=== PATIENT | male | born 1960 ===

== ENCOUNTER 2017-12-15 12:32 | Emergency (ER) | payer OTHER ==
[2017-12-15 12:32] VITALS: BMI 36.0
[2017-12-15 12:43] VITALS: BP 145/77; PULSE 102; RESP 20; TEMP 97.9; O2SAT 99
[2017-12-15] MEDS ORDERED: Naproxen 500 MG TAB PO STA (13:05)
[2017-12-15] MEDS ORDERED: Naproxen 500 MG TAB PO ONE (13:11)
--- NOTE | 2017-12-15 13:18 | ED PDOC ---
Lower Extremity Pain/Injury Time Seen by Provider: 12/15/17 12:49 Chief Complaint (Nursing): Lower Extremity Problem/Injury Chief Complaint (Provider): Knee Pain History Per: Patient History/Exam Limitations: no limitations Onset/Duration Of Symptoms: Days (2 days ago) Additional Complaint(s): 57 yo male presents to the ED complaining of right knee pain, onset of 2 days ago. Patient reports of stepping with his foot sideways when shoveling snow, which then caused a non-radiating, sharp ripping sensation along the outside of his right knee. The next day he states that it felt swollen but didn't look swollen. Patient notes that he has been wearing a knee brace and taking percocet for his back pain, but it hasn't been helping with his knee pain. Of note, patient states that he's had knee injections in the past to manage pain. Past Medical History Reviewed: Historical Data, Nursing Documentation, Vital Signs Vital Signs: Last Vital Signs Temp 97.9 F 12/15/17 12:41 Pulse 102 H 12/15/17 12:41 Resp 20 12/15/17 12:41 BP 145/77 12/15/17 12:41 Pulse Ox 99 12/15/17 12:41 - Medical History PMH: Anxiety, Arthritis, Asthma, Back Problems (herniated lumbar disc), CAD, Depression, Diabetes (type II), GERD, HTN, Hypercholesterolemia, Chronic Pain Denies: Chronic Kidney Disease - Surgical History Surgical History: Coronary Stent - Family History Family History: States: Unknown Family Hx, Diabetes, Hypertension - Social History Current smoker - smoking cessation education provided: Yes (some days) Ex-Smoker (has not smoked in the last 12 months): No Alcohol: None Drugs: Denies - Immunization History Hx Tetanus Toxoid Vaccination: No Hx Influenza Vaccination: No Hx Pneumococcal Vaccination: No - Home Medications Home Medications: Ambulatory Orders Medication Instructions Recorded GlipiZIDE [Glucotrol] 10 mg PO BID 05/25/13 Diclofenac Sodium [Voltaren Gel] 1 % TP DAILY 02/19/15 Fluticasone Propionate [Flovent 0.22 mg IH DAILY 02/19/15 Hfa] Lisinopril/Hydrochlorothiazide 1 tab PO DAILY 02/19/15 [Zestoretic 12.5 mg-10 mg] Lovastatin 40 mg PO DAILY 02/19/15 Meloxicam 15 mg PO DAILY 02/19/15 Naproxen 375 mg PO DAILY 02/19/15 Sildenafil Citrate [Viagra] 100 mg PO DAILY 02/19/15 Acetaminophen/Oxycodone Hydr 1 tab PO Q6H PRN 06/02/15 [Percocet 10/325 mg Tab] Naproxen [Naprosyn] 500 mg PO BID PRN #20 tablet 12/15/17 - Allergies Allergies/Adverse Reactions: Allergies Allergy/AdvReac Type Severity Reaction Status Date / Time No Known Allergies Allergy Verified 12/15/17 12:40 Review of Systems ROS Statement: Except As Marked, All Systems Reviewed And Found Negative Constitutional: Negative for: Fever Musculoskeletal: Positive for: Back Pain (chronic), Leg Pain (right knee pain) Physical Exam - Reviewed Nursing Documentation Reviewed: Yes Vital Signs Reviewed: Yes - Physical Exam Appears: Positive for: Well, Non-toxic, No Acute Distress Head Exam: Positive for: ATRAUMATIC Skin: Positive for: Normal Color Eye Exam: Positive for: Normal appearance ENT: Positive for: Normal ENT Inspection Respiratory: Negative for: Accessory Muscle Use, Respiratory Distress Extremity: Positive for: Normal ROM, Tenderness (over the LCL ). Negative for: Pedal Edema, Deformity, Swelling Neurologic/Psych: Positive for: Alert, Oriented. Negative for: Motor/Sensory Deficits - ECG O2 Sat by Pulse Oximetry: 99 (RA) Pulse Ox Interpretation: Normal Medical Decision Making Medical Decision Making: Time: --13:05 Impression: --Right knee pain, rule out ligament tear Plan: --Naproxen 500 mg PO --Knee 3 Views Right X-ray Reassess --14:21 Knee X-ray IMPRESSION: No evidence of acute displaced fracture nor dislocation. Findings consistent with chondrocalcinosis ; rule out CPPD. Small joint effusion. Above questionable calcified Gresham cyst. Consider follow-up MRI further evaluation is required results: Scribe Attestation: Documented by Florentin Estrada acting as a scribe for Elizabeth Ulloa MD. Disposition - Clinical Impression Clinical Impression: Knee pain - Patient ED Disposition Is Patient to be Admitted: No - Disposition Referrals: Mejia Obrien MD [Medical Doctor] - Disposition: Routine/Home Disposition Time: 14:34 Condition: GOOD Prescriptions: Naproxen [Naprosyn] 500 mg PO BID PRN #20 tablet PRN Reason: Pain Instructions: Knee Pain (DC) Forms: [employer] (Pashto)
--- NOTE | 2017-12-15 14:22 | RAD ---
PROCEDURE: Right Knee Radiographs. HISTORY: right knee pain COMPARISON: None. FINDINGS: BONES: No evidence of acute displaced fracture nor dislocation. JOINTS: Intradiscal calcifications meniscal calcifications are present consistent with chondrocalcinosis. Rule out CPPD. Joint spaces are relatively preserved. JOINT EFFUSION: There is a small suprapatellar joint effusion. Circumferential of appearing calcifications within the popliteal fossa could represent calcified Gresham's cyst. Clinical correlation recommended. Vascular calcifications are also present. OTHER FINDINGS: None. IMPRESSION: No evidence of acute displaced fracture nor dislocation. Findings consistent with chondrocalcinosis ; rule out CPPD. Small joint effusion. Above questionable calcified Gresham cyst. Consider follow-up MRI further evaluation is required
== END 2017-12-15 14:43 | disposition home or self-care (01) ==
LOC: H.ER 12:32
DX: M25.561 Pain in right knee (principal); E11.9 Type 2 diabetes mellitus without complications; Z79.84 Long term (current) use of oral hypoglycemic drugs; Z95.5 Presence of coronary angioplasty implant and graft; G89.29 Other chronic pain

== ENCOUNTER 2019-01-17 02:50 | Emergency (ER) | payer OTHER ==
[2019-01-17 02:50] VITALS: BMI 31.2
[2019-01-17 03:06] VITALS: BP 183/79; PULSE 93; RESP 18; TEMP 98.3; O2SAT 99
[2019-01-17] MEDS ORDERED: Morphine 4 MG/ML VIAL ONE (04:21)
== END 2019-01-17 03:25 | disposition left against medical advice (07) ==
LOC: H.ER 02:50
DX: Z02.89 Encounter for other administrative examinations (principal)

== ENCOUNTER 2019-01-17 03:33 | Emergency (ER) | payer OTHER ==
[2019-01-17 03:52] VITALS: BMI 31.7
[2019-01-17] MEDS ORDERED: Morphine 4 MG/ML VIAL IM STA (04:19)
--- NOTE | 2019-01-17 04:49 | ED PDOC ---
HPI: Back Time Seen by Provider: 01/17/19 04:09 Chief Complaint (Nursing): Back Pain Chief Complaint (Provider): Back Pain History Per: Patient History/Exam Limitations: no limitations Onset/Duration Of Symptoms: Hrs (x 9) Current Symptoms Are (Timing): Still Present Quality Of Discomfort: "Pain" Previous Symptoms: Chronic Pain Associated Symptoms: None Additional Complaint(s): 58 year old male with a history of diabetes, HTN, high cholesterol, spinal stenosis and chronic back pain presents to the ED for evaluation of worsening spinal stenosis pain since 7 pm last night. Patient reports pain is localized to his right gluteal region and worse than normal, prompting ED visit. He states that he is supposed to receive trigger point injections from his pain management doctors, but has not been able to go. Patient took 10 mg Perocet with no relief. Denies difficulty with bowel or urinary habits, heavy lifting and recent injury. PMD: Aparna Velazquez - Risk Factors AAA Risk Factors: Pos: Older Than 49 Years Of Age, Hypertension Past Medical History Reviewed: Historical Data, Nursing Documentation, Vital Signs Vital Signs: Last Vital Signs Temp 98.6 F 01/17/19 03:52 Pulse 108 H 01/17/19 03:52 Resp 18 01/17/19 03:52 BP 159/72 H 01/17/19 03:52 Pulse Ox 98 01/17/19 03:52 - Medical History PMH: Anemia (Pt. claims he was told he has anemia), Anxiety, Arthritis, Asthma, Back Problems (herniated lumbar disc), CAD, COPD, Depression, Diabetes (type II), GERD, HTN, Hypercholesterolemia, Chronic Pain Denies: Chronic Kidney Disease - Surgical History Surgical History: Coronary Stent - Family History Family History: States: Unknown Family Hx, Diabetes, Hypertension - Immunization History Hx Tetanus Toxoid Vaccination: No Hx Influenza Vaccination: No Hx Pneumococcal Vaccination: No - Home Medications Home Medications: Ambulatory Orders Medication Instructions Recorded Baclofen [Lioresal] 1 tab PO PCHS 05/25/18 Clopidogrel [Plavix] 1 tab PO DAILY 05/25/18 Empagliflozin [Jardiance] 1 tab PO DAILY 05/25/18 Gabapentin [Neurontin] 1 cap PO BID 05/25/18 Glimepiride [Amaryl] 1 tab PO DAILY 05/25/18 MetFORMIN [glucoPHAGE] 1 tab PO BID 05/25/18 Oxycodone HCl/Acetaminophen 1 tab PO Q6H PRN 05/25/18 [Endocet 10-325 mg Tablet] Umeclidinium Brm/Vilanterol Tr 1 each INH BID 05/25/18 [Anoro Ellipta 62.5-25 Mcg INH] hydroCHLOROthiazide [Microzide] 1 cap PO DAILY 05/25/18 - Allergies Allergies/Adverse Reactions: Allergies Allergy/AdvReac Type Severity Reaction Status Date / Time No Known Allergies Allergy Verified 01/17/19 03:52 Review of Systems ROS Statement: Except As Marked, All Systems Reviewed And Found Negative Gastrointestinal: Negative for: Constipation, Melena, Hematochezia, Hematemesis Genitourinary Male: Negative for: Dysuria, Frequency, Incontinence, Hematuria Musculoskeletal: Positive for: Leg Pain (right gluteal region) Physical Exam - Reviewed Nursing Documentation Reviewed: Yes Vital Signs Reviewed: Yes - Physical Exam Appears: Positive for: Uncomfortable (visibly) Head Exam: Positive for: ATRAUMATIC, NORMAL INSPECTION, NORMOCEPHALIC Skin: Positive for: Normal Color, Warm, Dry Eye Exam: Positive for: Normal appearance, EOMI, PERRL Neck: Positive for: Normal, Painless ROM, Supple Cardiovascular/Chest: Positive for: Regular Rate, Rhythm. Negative for: Murmur Respiratory: Positive for: Normal Breath Sounds. Negative for: Respiratory Distress Gastrointestinal/Abdominal: Positive for: Normal Exam, Soft. Negative for: Tenderness Back: Positive for: Normal Inspection, Other (tenderness to palpation of right gluteal buttock without swelling or erythema) Extremity: Positive for: Other ((+) straight leg test). Negative for: Deformity Neurological/Psych: Positive for: Awake, Alert, Normal Tone, Symmetric/Intact Strength (5/5 bilaterally), Oriented (x 3). Negative for: Motor/Sensory Deficits - ECG O2 Sat by Pulse Oximetry: 98 (RA) Pulse Ox Interpretation: Normal Medical Decision Making Medical Decision Makin:19 A&P: Acute on chronic worsening of spinal stenosis and sciatica pain Not concerned for spinal cord impingement syndrome Will treat symptomatically and re-evaluate Orders: --Flexeril 10 mg PO --Morphine 4 mg IV --Toradol 60 mg IM 05:26 Patient reports complete resolution of symptoms and is stable for discharge. Advised him to seek furhter care with his pain management doctor today - Scribe Attestation: Documented by Sherlyn Leigh, acting as a scribe for Gaston Worthington MD Provider Scribe Attestation: All medical record entries made by the Scribe were at my direction and personally dictated by me. I have reviewed the chart and agree that the record accurately reflects my personal performance of the history, physical exam, medical decision making, and the department course for this patient. I have also personally directed, reviewed, and agree with the discharge instructions and disposition. Disposition - Clinical Impression Clinical Impression: Chronic back pain - Patient ED Disposition Is Patient to be Admitted: No - Disposition Referrals: Aparna Velazquez MD [Primary Care Provider] - Disposition: Routine/Home Disposition Time: 05:26 Condition: IMPROVED Instructions: Low Back Pain in Adults, Chronic Pain (DC) Forms: [employer] (Hebrew)
[2019-01-17 06:18] VITALS: BP 151/81; PULSE 87; RESP 17; TEMP 98.1
[2019-01-17 06:38] VITALS: O2SAT 98
== END 2019-01-17 05:40 | disposition home or self-care (01) ==
LOC: H.ER 03:33
DX: M54.9 Dorsalgia, unspecified (principal); E11.9 Type 2 diabetes mellitus without complications; Z79.84 Long term (current) use of oral hypoglycemic drugs
CPT/HCPCS: 96372; 99284; J1885; J2270

== ENCOUNTER 2019-01-17 14:28 | Emergency (ER) | payer OTHER ==
[2019-01-17 14:40] VITALS: BMI 48.4
--- NOTE | 2019-01-17 15:25 | ED PDOC ---
HPI: Back Time Seen by Provider: 01/17/19 15:10 Chief Complaint (Nursing): Lower Extremity Problem/Injury Chief Complaint (Provider): Back Pain History Per: Patient History/Exam Limitations: no limitations Onset/Duration Of Symptoms: Other (chronic) Current Symptoms Are (Timing): Still Present Additional Complaint(s): 58 year old male with a history of diabetes, HTN, high cholesterol, spinal stenosis and chronic back pain presents to the ED via EMS stretcher for evaluation of worsening spinal stenosis pain since being discharged from the hospital this morning. He states he went home and fell asleep, but upon waking up had the same worsening pain. Patient reports pain is localized to his right gluteal region and worse than normal, prompting ED visit. He states that he is supposed to receive trigger point injections from his pain management doctors, but this appointment is not until 01/22. Patient did not take any medications after the last doses he had in the hospital this morning around 0500, however notes he usually takes Percocets at home. Denies difficulty with bowel or urinary habits, heavy lifting and recent injury. Of note, patient is ambulating slowly with a cane. PMD: Aparna Velazquez Past Medical History Reviewed: Historical Data, Nursing Documentation, Vital Signs Vital Signs: Last Vital Signs Temp 97 F L 01/17/19 14:48 Pulse 92 H 01/17/19 14:48 Resp 16 01/17/19 14:48 BP 178/80 H 01/17/19 14:48 Pulse Ox 98 01/17/19 14:48 - Medical History PMH: Anemia (Pt. claims he was told he has anemia), Anxiety, Arthritis, Asthma, Back Problems (herniated lumbar disc), CAD, COPD, Depression, Diabetes (type II), GERD, HTN, Hypercholesterolemia, Chronic Pain Denies: Chronic Kidney Disease - Surgical History Surgical History: Coronary Stent - Family History Family History: States: Diabetes, Hypertension - Social History Drugs: Opiates (percocets) - Immunization History Hx Tetanus Toxoid Vaccination: No Hx Influenza Vaccination: No Hx Pneumococcal Vaccination: No - Home Medications Home Medications: Ambulatory Orders Medication Instructions Recorded Baclofen [Lioresal] 1 tab PO PCHS 05/25/18 Clopidogrel [Plavix] 1 tab PO DAILY 05/25/18 Empagliflozin [Jardiance] 1 tab PO DAILY 05/25/18 Gabapentin [Neurontin] 1 cap PO BID 05/25/18 Glimepiride [Amaryl] 1 tab PO DAILY 05/25/18 MetFORMIN [glucoPHAGE] 1 tab PO BID 05/25/18 Oxycodone HCl/Acetaminophen 1 tab PO Q6H PRN 05/25/18 [Endocet 10-325 mg Tablet] Umeclidinium Brm/Vilanterol Tr 1 each INH BID 05/25/18 [Anoro Ellipta 62.5-25 Mcg INH] hydroCHLOROthiazide [Microzide] 1 cap PO DAILY 05/25/18 Cyclobenzaprine [Cyclobenzaprine 10 mg PO Q8H PRN #20 tab 01/17/19 HCl] Ibuprofen [Motrin Tab] 800 mg PO Q8H PRN #30 tab 01/17/19 - Allergies Allergies/Adverse Reactions: Allergies Allergy/AdvReac Type Severity Reaction Status Date / Time No Known Allergies Allergy Verified 01/17/19 03:52 Review of Systems ROS Statement: Except As Marked, All Systems Reviewed And Found Negative Genitourinary Male: Negative for: Dysuria, Frequency, Incontinence Musculoskeletal: Positive for: Back Pain (chronic) Physical Exam - Reviewed Nursing Documentation Reviewed: Yes Vital Signs Reviewed: Yes - Physical Exam Appears: Positive for: No Acute Distress Head Exam: Positive for: ATRAUMATIC, NORMOCEPHALIC Skin: Positive for: Normal Color, Warm. Negative for: Rash Eye Exam: Positive for: Normal appearance Neck: Positive for: Normal, Painless ROM, Supple Cardiovascular/Chest: Positive for: Regular Rate, Rhythm Respiratory: Positive for: Normal Breath Sounds. Negative for: Respiratory Distress Pulses-Dorsalis Pedis (L): 2+ Pulses-Dorsalis Pedis (R): 2+ Gastrointestinal/Abdominal: Positive for: Normal Exam, Soft. Negative for: Tenderness Back: Positive for: Normal Inspection (no ecchymosis, erythema, or break in skin integrity), Other (point tenderness to right lower back radiating down right glute) Extremity: Positive for: Capillary Refill (less than 2 seconds) Neurological/Psych: Positive for: Awake, Alert, Oriented (x3), Gait (slow, assisted with cane) - ECG O2 Sat by Pulse Oximetry: 98 (RA) Pulse Ox Interpretation: Normal Medical Decision Making Medical Decision Making: Time: 1513 Initial Impression: chronic back pain Initial Plan: --Flexeril 10mg PO --Toradol 60mg IM --Reevaluation 16:06 Patient reevaluated. He is walking with his cane back forth from the nurses' station to his chair. He reports that he feels better leaning forward. Pain has improved slightly, but not much. Morphine 4 mg IM to be given. Reevaluate 17:12 Patient was given prescription for Flexeril, and motrin. Patient is ambulating with less difficulty. Follow up with PMD to get epidural shots. Return parame therons discussed. Scribe Attestation: Documented by Haven Juarez, acting as a scribe for Debbie Betancourt APN. Provider Scribe Attestation: All medical record entries made by the Scribe were at my direction and personally dictated by me. I have reviewed the chart and agree that the record accurately reflects my personal performance of the history, physical exam, medical decision making, and the department course for this patient. I have also personally directed, reviewed, and agree with the discharge instructions and disposition. Scribe Attestation: Documented by Carleen Rivera, acting as a scribe for Debbie Betancourt APN. Provider Scribe Attestation: All medical record entries made by the Scribe were at my direction and personally dictated by me. I have reviewed the chart and agree that the record accurately reflects my personal performance of the history, physical exam, medical decision making, and the department course for this patient. I have also personally directed, reviewed, and agree with the discharge instructions and disposition. Disposition - Clinical Impression Clinical Impression: Sciatica - Patient ED Disposition Is Patient to be Admitted: No Counseled Patient/Family Regarding: Diagnosis, Need For Followup, Rx Given - Disposition Disposition: Routine/Home Disposition Time: 17:10 Condition: STABLE Prescriptions: Cyclobenzaprine [Cyclobenzaprine HCl] 10 mg PO Q8H PRN #20 tab PRN Reason: Muscle Spasm Ibuprofen [Motrin Tab] 800 mg PO Q8H PRN #30 tab PRN Reason: Pain, Moderate (4-7) Instructions: Sciatica (DC), Sciatica Exercises - POA Present On Arrival: None
[2019-01-17] MEDS ORDERED: Morphine 4 MG/ML VIAL IM STA (16:05)
[2019-01-17 17:39] VITALS: BP 122/80; PULSE 76; RESP 18; TEMP 98; O2SAT 100
== END 2019-01-17 17:38 | disposition home or self-care (01) ==
LOC: H.ER 14:28
DX: M54.31 Sciatica, right side (principal); E11.9 Type 2 diabetes mellitus without complications; E78.00 Pure hypercholesterolemia, unspecified; I10 Essential (primary) hypertension; Z79.84 Long term (current) use of oral hypoglycemic drugs; Z95.5 Presence of coronary angioplasty implant and graft
CPT/HCPCS: 96372; 99283; J1885

== ENCOUNTER 2019-01-18 08:20 | Emergency (ER) | payer OTHER ==
[2019-01-18 08:23] VITALS: RESP 16; TEMP 98.9; O2SAT 99
[2019-01-18 08:24] VITALS: BMI 48.0
--- NOTE | 2019-01-18 09:20 | ED PDOC ---
Lower Extremity Pain/Injury Time Seen by Provider: 01/18/19 08:35 Chief Complaint (Nursing): Lower Extremity Problem/Injury Chief Complaint (Provider): Lower Extremity Problem/Injury History Per: Patient History/Exam Limitations: no limitations Onset/Duration Of Symptoms: Days (2) Current Symptoms Are (Timing): Still Present Additional Complaint(s): 58 y/o male presents for the 4th time in 2 days to the ED complaining about lower back and lower hip pain. Patient was diagnose with sciatic nerve problems. Patient states Percocet is not helping and is requesting a shot of morphine in the back. Reviewed [place] prescription program and show multiple prescription Endocet and Percocet in the last month. Patient reports he has an appointment with a pain specialist on the 30 of January. Patient denies any recent fever or any other complaints. PMD: none provided Past Medical History Reviewed: Historical Data, Nursing Documentation, Vital Signs Vital Signs: Last Vital Signs Temp 98.9 F 01/18/19 08:22 Pulse 91 H 01/18/19 08:22 Resp 16 01/18/19 08:22 BP 191/85 H 01/18/19 08:22 Pulse Ox 99 01/18/19 08:22 - Medical History PMH: Anemia (Pt. claims he was told he has anemia), Anxiety, Arthritis, Asthma, Back Problems (herniated lumbar disc), CAD, COPD, Depression, Diabetes (type II), GERD, HTN, Hypercholesterolemia, Chronic Pain Denies: Chronic Kidney Disease - Surgical History Surgical History: Coronary Stent - Family History Family History: States: Unknown Family Hx, Diabetes, Hypertension - Immunization History Hx Tetanus Toxoid Vaccination: No Hx Influenza Vaccination: No Hx Pneumococcal Vaccination: No - Home Medications Home Medications: Ambulatory Orders Medication Instructions Recorded Baclofen [Lioresal] 1 tab PO PCHS 05/25/18 Clopidogrel [Plavix] 1 tab PO DAILY 05/25/18 Gabapentin [Neurontin] 1 cap PO BID 05/25/18 Glimepiride [Amaryl] 1 tab PO DAILY 05/25/18 MetFORMIN [glucoPHAGE] 1 tab PO BID 05/25/18 Oxycodone HCl/Acetaminophen 1 tab PO Q6H PRN 05/25/18 [Endocet 10-325 mg Tablet] DULoxetine [Cymbalta] 30 mg PO DAILY 01/18/19 Empagliflozin [Jardiance] 25 mg PO BID 01/18/19 Losartan/Hydrochlorothiazide 1 each PO DAILY 01/18/19 [Losartan-Hctz 100-25 mg Tab] - Allergies Allergies/Adverse Reactions: Allergies Allergy/AdvReac Type Severity Reaction Status Date / Time No Known Allergies Allergy Verified 01/18/19 08:37 Review of Systems ROS Statement: Except As Marked, All Systems Reviewed And Found Negative Constitutional: Negative for: Fever Cardiovascular: Negative for: Chest Pain Musculoskeletal: Positive for: Back Pain, Other (Hip pain.). Negative for: Leg Pain Neurological: Negative for: Weakness, Numbness Physical Exam - Reviewed Nursing Documentation Reviewed: Yes Vital Signs Reviewed: Yes - Physical Exam Appears: Positive for: Well, Non-toxic, No Acute Distress Head Exam: Positive for: ATRAUMATIC, NORMOCEPHALIC Skin: Positive for: Normal Color, Warm, Dry Eye Exam: Positive for: EOMI, Normal appearance, PERRL ENT: Positive for: Normal ENT Inspection Neck: Positive for: Normal, Painless ROM, Supple Cardiovascular/Chest: Positive for: Regular Rate, Rhythm. Negative for: Murmur Respiratory: Positive for: Normal Breath Sounds. Negative for: Wheezing, Respiratory Distress Gastrointestinal/Abdominal: Positive for: Normal Exam, Soft. Negative for: Tenderness Back: Positive for: Normal Inspection Extremity: Positive for: Normal ROM Neurological/Psych: Positive for: Awake, Alert, Normal Tone, Oriented (x3). Negative for: Motor/Sensory Deficits - ECG O2 Sat by Pulse Oximetry: 99 Medical Decision Making Medical Decision Making: Time:849 Initial Impression: Lower back problems and hip pain Initial Plan: -Flexeril 10mg PO -Toradol 15mg IM Pt seems to be sitting comfortably looking at his phone when not directly being addressed. when he is being addressed pt becomes tearful and screaming he is in pain. Seems ambulating to exam room without limping, deficit, without loss of balance or asymmetry. Chronic pain uncontrolable. Told pt we do not give interspinal injections but will give Toradol and Flexural in the ED. 916 Improved symptoms. told patient to see a pain managment specialist and will give prescription for opioid and discharge. Scribe Attestation: Documented by Radha Wray, acting as a scribe for Shalini Cornejo Provider Scribe Attestation: All medical record entries made by the Scribe were at my direction and personally dictated by me. I have reviewed the chart and agree that the record accurately reflects my personal performance of the history, physical exam, medical decision making, and the department course for this patient. I have also personally directed, reviewed, and agree with the discharge instructions and disposition. Disposition - Clinical Impression Clinical Impression: Sciatica - Disposition Disposition Time: 09:16 Condition: IMPROVED Additional Instructions: Follow up with [facility] as soon as possible. Continue to take Flexeril and Naproxen for pain. Return to the emergency department if you devel op numbness to the legs, difficulty urinating or fecal incontinence, or other new symptoms. Instructions: Sciatica (DC) Forms: [employer] (Guamanian), [employer] (Equatorial [place]an), [facility] ED School/Work Excuse Print Language: CZECH
[2019-01-18 10:00] VITALS: BP 137/66; PULSE 72
== END 2019-01-18 10:11 | disposition home or self-care (01) ==
LOC: H.ER 08:20
DX: M54.30 Sciatica, unspecified side (principal); E11.9 Type 2 diabetes mellitus without complications; G89.29 Other chronic pain; I10 Essential (primary) hypertension; Z79.84 Long term (current) use of oral hypoglycemic drugs; Z79.899 Other long term (current) drug therapy; Z95.5 Presence of coronary angioplasty implant and graft; J44.9 Chronic obstructive pulmonary disease, unspecified; Z86.59 Personal history of other mental and behavioral disorders
CPT/HCPCS: 96372; 99284; J1885